=== PATIENT | female | born 1945 | race Caucasian/White ===

== ENCOUNTER 2021-02-02 19:17 | Inpatient (IN) | payer OTHER, MEDICARE, SELFPAY ==
[~2021-02-02] VITALS: Ht 162.6 cm; Wt 70.8 kg
[2021-02-02 19:17] VITALS: BP_SYST 176
[2021-02-02] MEDS ORDERED: HYDR-3927 PO (19:34)
[2021-02-02] MEDS ORDERED: DOCU250C14 PO (19:35)
[2021-02-02] MEDS ORDERED: PERC10 PO (19:36)
[2021-02-02] MEDS ORDERED: OXYB5TAB18 PO (19:37)
[2021-02-02] MEDS ORDERED: CEPH500C2 PO (19:38)
[2021-02-02] MEDS ORDERED: SENN8.6T19 PO (19:38)
[2021-02-02] MEDS ORDERED: CARB-290 PO (19:39)
[2021-02-02] MEDS ORDERED: HYDR2TAB4 PO (19:41)
[2021-02-02 21:17] LABS: BASOPHILS # (AUTO) 0.1 K/uL (0.0-0.2); BASOPHILS % (AUTO) 0.4 % (0.0-2.0); EOSINOPHILS % (AUTO) 0.1 % (0.0-4.0); HEMATOCRIT 32.9 % (36-48); HEMOGLOBIN 11.8 g/dL (12.0-16.0); LYMPHOCYTES # (AUTO) 0.5 K/uL (1.0-5.5); LYMPHOCYTES % (AUTO) 2.9 % (20.5-51.5); MEAN CORPUSCULAR HEMOGLOBIN 31 pg (27-31); MEAN CORPUSCULAR HGB CONC 36 % (32-36); MEAN CORPUSCULAR VOLUME 88 fL (79.0-98.0); MONOCYTES # (AUTO) 0.6 K/uL (0.0-1.0); NEUTROPHILS # (AUTO) 14.7 K/uL (1.8-7.7); NEUTROPHILS % (AUTO) 92.6 % (40.0-70.0); PLATELET COUNT (AUTO) 548 K/uL (130-430); RED BLOOD CELL COUNT(AUTO) 3.75 MIL/uL (4.2-6.2); RED CELL DISTRIBUTION WIDTH 14.8 % (9.0-15.0); WHITE BLOOD COUNT (AUTO) 15.9 K/uL (4.8-10.8)
[2021-02-02 21:26] LABS: ANION GAP 7 (5-15); CALCIUM 8.9 mg/dL (8.4-11.0); CREATININE 0.74 mg/dL (0.55-1.30); GLUCOSE 117 mg/dL (70-99); POTASSIUM 4.6 mmol/L (3.5-5.1); UREA NITROGEN, BLOOD 14 mg/dL (8-21)
[2021-02-02 21:27] LABS: PROTHROMBIN TIME 10.6 SECS (9.5-12.5)
[2021-02-02 21:31] LABS: ALANINE AMINOTRANSFERASE 10 U/L (12-78); ALBUMIN 3.2 g/dL (3.4-4.8); ASPARTATE AMINOTRANSFERASE 24 U/L (10-37); TOTAL BILIRUBIN 0.4 mg/dL (0.0-1.0)
[2021-02-02 21:45] LABS: SODIUM SERUM 114 mmol/L (136-145)
[2021-02-02 21:46] LABS: ACETAMINOPHEN < 1 ug/mL (1-30); ALCOHOL, BLOOD < 3 mg/dL (<10); CHLORIDE 81 mmol/L (98-107)
[2021-02-02 21:54] LABS: C-REACTIVE PROTEIN QUANT 1.6 mg/dL (0-0.5)
[2021-02-02] MEDS ORDERED: NACL 0.9% 1,000 ML IV ONE (22:00)
[2021-02-02] MEDS ORDERED: cefTRIAXone 1 GM IVPB PREMIX 50 ML IV ONE (22:00)
[2021-02-02 22:23] LABS: ACETONE, SERUM NEGATIVE (NEGATIVE)
[2021-02-02] MEDS ORDERED: amLODIPine BESYLATE 10 MG TABLET PO ONE (22:30)
[2021-02-02] MEDS ORDERED: ONDANSETRON HCL 4 MG/2 ML VIAL IVP PRN (22:45)
[2021-02-02] MEDS ORDERED: OXYCODONE/ACETAMINOPHEN *10*mg/325 mg TABLET PO PRN (22:45)
[2021-02-02] MEDS ORDERED: DOCUSATE SODIUM 250 MG CAPSULE PO PRN (22:45)
[2021-02-02] MEDS ORDERED: SENNOSIDES 8.6 MG TABLET PO PRN (22:45)
[2021-02-02] MEDS ORDERED: cloNIDine HCL 0.1 MG TABLET PO PRN (22:45)
[2021-02-02 23:20] LABS: BILIRUBIN,URINE NEGATIVE (NEGATIVE); BLOOD, URINE NEGATIVE (NEGATIVE); CLARITY/URINE CLEAR (CLEAR); COLOR,URINE YELLOW (YELLOW); GLUCOSE,URINE NEGATIVE (NEGATIVE); KETONES,URINE 1+ (NEGATIVE); LEUKOCYTE ESTERASE ,URINE NEGATIVE (NEGATIVE); NITRITE, URINE NEGATIVE (NEGATIVE); PH,URINE 5.5 (5.0-8.0); PROTEIN URINE NEGATIVE (NEGATIVE); UROBILINOGEN,URINE 0.2 (0.2-1.0)
[2021-02-02 23:38] LABS: BARBITURATE, URINE NEGATIVE (NEG <=200); BENZODIAZEPINE, URINE NEGATIVE (NEG <=150); CANNABINOID, URINE NEGATIVE (NEG <=50); COCAINE, URINE NEGATIVE (NEG <=150); METHAMPHETAMINES SCREEN,URINE NEGATIVE (NEG <=500); OPIATE, URINE POSITIVE (NEG <=100); PHENCYCLIDINE SCREEN,URINE NEGATIVE (NEG <=25); UR TRICYCLIC ANTIDEPRESSANTS NEGATIVE (NEG <=300); URINE AMPHETAMINE NEGATIVE (NEG <=500); URINE METHADONE NEGATIVE (NEG <=200); URINE OXYCODONE SCREEN POSITIVE (NEG <=100); URINE PROPOXYPHENE SCREEN NEGATIVE (NEG <=300)
[2021-02-03 01:00] VITALS: BP_SYST 164
[2021-02-03] MEDS: D5NS 1,000 ML IV SCH ×3 (01:57→19:57)
[2021-02-03] MEDS: CARBIDOPA/LEVODOPA 25/100 MG TABLET PO SCH ×4 (01:58→19:56)
[2021-02-03] MEDS ORDERED: AMPICILLIN SODIUM/SULBACTAM NA 1.5 GM VIAL ONE (01:58)
[2021-02-03] MEDS: METOPROLOL TARTRATE 50 MG TABLET PO SCH ×3 (01:58→19:57)
[2021-02-03] MEDS: AMPICILLIN SODIUM/SULBACTAM NA 1.5 GM in NS 50 ML IV SCH ×5 (02:00→23:50)
[2021-02-03] MEDS: ENOXAPARIN SODIUM 40 MG/0.4 ML SYRINGE SUBCUT SCH ×2 (02:02→19:58)
[2021-02-03 04:00] VITALS: BP_SYST 136
[2021-02-03 06:24] LABS: BASOPHILS % (AUTO) 0.1 % (0.0-2.0); EOSINOPHILS % (AUTO) 0.3 % (0.0-4.0); HEMATOCRIT 32.8 % (36-48); HEMOGLOBIN 11.4 g/dL (12.0-16.0); LYMPHOCYTES # (AUTO) 0.7 K/uL (1.0-5.5); LYMPHOCYTES % (AUTO) 4.3 % (20.5-51.5); MEAN CORPUSCULAR HEMOGLOBIN 31 pg (27-31); MEAN CORPUSCULAR HGB CONC 35 % (32-36); MEAN CORPUSCULAR VOLUME 88 fL (79.0-98.0); MONOCYTES % (AUTO) 6.7 % (1.7-9.3); NEUTROPHILS # (AUTO) 13.4 K/uL (1.8-7.7); NEUTROPHILS % (AUTO) 88.6 % (40.0-70.0); PLATELET COUNT (AUTO) 587 K/uL (130-430); RED BLOOD CELL COUNT(AUTO) 3.73 MIL/uL (4.2-6.2); RED CELL DISTRIBUTION WIDTH 14.8 % (9.0-15.0); WHITE BLOOD COUNT (AUTO) 15.1 K/uL (4.8-10.8)
[2021-02-03 06:42] LABS: ALANINE AMINOTRANSFERASE 5 U/L (12-78); ALBUMIN 2.9 g/dL (3.4-4.8); ANION GAP 7 (5-15); ASPARTATE AMINOTRANSFERASE 15 U/L (10-37); CALCIUM 8.6 mg/dL (8.4-11.0); CREATININE 0.75 mg/dL (0.55-1.30); GLUCOSE 106 mg/dL (70-99); TOTAL BILIRUBIN 0.6 mg/dL (0.0-1.0); UREA NITROGEN, BLOOD 10 mg/dL (8-21)
[2021-02-03 07:42] LABS: CHLORIDE 85 mmol/L (98-107)
[2021-02-03 07:44] LABS: SODIUM SERUM 118 mmol/L (136-145)
[2021-02-03] MEDS ORDERED: cephALEXin 500 MG CAPSULE PO SCH (09:00)
[2021-02-03] MEDS: amLODIPine BESYLATE 10 MG TABLET PO SCH (09:01)
[2021-02-03] MEDS: OXYBUTYNIN CHLORIDE 5 MG TABLET PO SCH ×2 (09:01→19:56)
[2021-02-03 15:43] VITALS: BP_SYST 140
[2021-02-03] MEDS: HYDROmorphone 2 MG/ML VIAL IVP PRN (17:16)
[2021-02-03 17:20] VITALS: BP_SYST 153
[2021-02-03 20:00] VITALS: BP_SYST 141
[2021-02-03] MEDS ORDERED: cefTRIAXone 1 GM in D5W 50 ML IV SCH (21:00)
[2021-02-03] MEDS: LORazepam 1 MG TABLET PO SCH (22:17)
[2021-02-04] VITALS: BP_SYST 138
[2021-02-04] MEDS: HYDROmorphone 2 MG/ML VIAL IVP PRN (04:32)
[2021-02-04] MEDS: AMPICILLIN SODIUM/SULBACTAM NA 1.5 GM in NS 50 ML IV SCH ×4 (05:22→17:45)
[2021-02-04 06:32] LABS: BASOPHILS % (AUTO) 0.5 % (0.0-2.0); EOSINOPHILS # (AUTO) 0.1 K/uL (0.0-0.4); EOSINOPHILS % (AUTO) 1.2 % (0.0-4.0); HEMATOCRIT 32.1 % (36-48); HEMOGLOBIN 11.4 g/dL (12.0-16.0); LYMPHOCYTES # (AUTO) 0.8 K/uL (1.0-5.5); LYMPHOCYTES % (AUTO) 9.2 % (20.5-51.5); MEAN CORPUSCULAR HEMOGLOBIN 31 pg (27-31); MEAN CORPUSCULAR HGB CONC 36 % (32-36); MEAN CORPUSCULAR VOLUME 88 fL (79.0-98.0); MONOCYTES # (AUTO) 1.1 K/uL (0.0-1.0); MONOCYTES % (AUTO) 11.7 % (1.7-9.3); NEUTROPHILS # (AUTO) 7.1 K/uL (1.8-7.7); NEUTROPHILS % (AUTO) 77.4 % (40.0-70.0); PLATELET COUNT (AUTO) 583 K/uL (130-430); RED BLOOD CELL COUNT(AUTO) 3.64 MIL/uL (4.2-6.2); RED CELL DISTRIBUTION WIDTH 15.1 % (9.0-15.0); WHITE BLOOD COUNT (AUTO) 9.2 K/uL (4.8-10.8)
[2021-02-04 06:41] LABS: ANION GAP 4 (5-15); CALCIUM 8.8 mg/dL (8.4-11.0); CHLORIDE 89 mmol/L (98-107); CREATININE 0.65 mg/dL (0.55-1.30); GLUCOSE 98 mg/dL (70-99); PHOSPHORUS 2.5 mg/dL (2.7-4.5); POTASSIUM 3.5 mmol/L (3.5-5.1); SODIUM SERUM 122 mmol/L (136-145); UREA NITROGEN, BLOOD 7 mg/dL (8-21)
[2021-02-04 08:00] VITALS: BP_SYST 126
[2021-02-04] MEDS: OXYBUTYNIN CHLORIDE 5 MG TABLET PO SCH ×2 (08:36→20:32)
[2021-02-04] MEDS: METOPROLOL TARTRATE 50 MG TABLET PO SCH ×2 (08:37→20:32)
[2021-02-04] MEDS: amLODIPine BESYLATE 10 MG TABLET PO SCH (08:37)
[2021-02-04] MEDS: CARBIDOPA/LEVODOPA 25/100 MG TABLET PO SCH ×3 (08:37→20:31)
[2021-02-04] MEDS: D5NS 1,000 ML IV SCH (10:03)
[2021-02-04 12:11] VITALS: BP_SYST 116
[2021-02-04] MEDS: ACETAMINOPHEN 325 MG TABLET PO PRN (15:11)
[2021-02-04 16:00] VITALS: BP_SYST 90
[2021-02-04] MEDS: OXYCODONE/ACETAMINOPHEN 5-325 TABLET PO PRN ×2 (17:46→22:16)
[2021-02-04 20:27] VITALS: BP_SYST 108
[2021-02-04] MEDS: LORazepam 1 MG TABLET PO SCH (20:32)
[2021-02-04] MEDS: ENOXAPARIN SODIUM 40 MG/0.4 ML SYRINGE SUBCUT SCH (20:33)
[2021-02-04 22:14] VITALS: BP_SYST 133
[2021-02-05 02:18] VITALS: BP_SYST 125
[2021-02-05] MEDS: OXYCODONE/ACETAMINOPHEN 5-325 TABLET PO PRN ×4 (02:29→21:10)
[2021-02-05] MEDS: D5NS 1,000 ML IV SCH ×2 (05:00→16:55)
[2021-02-05] MEDS: AMPICILLIN SODIUM/SULBACTAM NA 1.5 GM in NS 50 ML IV SCH ×3 (05:07→17:32)
[2021-02-05 06:42] LABS: BASOPHILS # (AUTO) 0.1 K/uL (0.0-0.2); BASOPHILS % (AUTO) 0.7 % (0.0-2.0); EOSINOPHILS # (AUTO) 0.2 K/uL (0.0-0.4); EOSINOPHILS % (AUTO) 1.4 % (0.0-4.0); HEMATOCRIT 31.7 % (36-48); HEMOGLOBIN 11.2 g/dL (12.0-16.0); LYMPHOCYTES # (AUTO) 0.9 K/uL (1.0-5.5); LYMPHOCYTES % (AUTO) 7.9 % (20.5-51.5); MEAN CORPUSCULAR HEMOGLOBIN 31 pg (27-31); MEAN CORPUSCULAR HGB CONC 35 % (32-36); MEAN CORPUSCULAR VOLUME 89 fL (79.0-98.0); MONOCYTES % (AUTO) 9.5 % (1.7-9.3); NEUTROPHILS # (AUTO) 8.8 K/uL (1.8-7.7); NEUTROPHILS % (AUTO) 80.5 % (40.0-70.0); PLATELET COUNT (AUTO) 562 K/uL (130-430); RED BLOOD CELL COUNT(AUTO) 3.56 MIL/uL (4.2-6.2); RED CELL DISTRIBUTION WIDTH 15.1 % (9.0-15.0); WHITE BLOOD COUNT (AUTO) 10.9 K/uL (4.8-10.8)
[2021-02-05 06:57] LABS: ANION GAP 3 (5-15); CALCIUM 8.7 mg/dL (8.4-11.0); CHLORIDE 96 mmol/L (98-107); CREATININE 0.87 mg/dL (0.55-1.30); GLUCOSE 98 mg/dL (70-99); POTASSIUM 3.9 mmol/L (3.5-5.1); SODIUM SERUM 130 mmol/L (136-145); UREA NITROGEN, BLOOD 13 mg/dL (8-21)
[2021-02-05 07:58] VITALS: BP_SYST 130
[2021-02-05] MEDS: METOPROLOL TARTRATE 50 MG TABLET PO SCH ×2 (08:38→21:10)
[2021-02-05] MEDS: amLODIPine BESYLATE 10 MG TABLET PO SCH (08:38)
[2021-02-05] MEDS: OXYBUTYNIN CHLORIDE 5 MG TABLET PO SCH ×2 (08:38→21:09)
[2021-02-05] MEDS: CARBIDOPA/LEVODOPA 25/100 MG TABLET PO SCH ×3 (08:38→21:09)
[2021-02-05] MEDS: ACETAMINOPHEN 325 MG TABLET PO PRN (08:42)
[2021-02-05 12:00] VITALS: BP_SYST 127
[2021-02-05 15:52] VITALS: BP_SYST 118
[2021-02-05] MEDS ORDERED: MELATONIN 5 MG TABLET PO SCH (21:00)
[2021-02-05 21:05] VITALS: BP_SYST 150
[2021-02-05] MEDS: DOCUSATE SODIUM 250 MG CAPSULE PO SCH (21:09)
[2021-02-05] MEDS: LORazepam 1 MG TABLET PO SCH (21:10)
[2021-02-05] MEDS: ENOXAPARIN SODIUM 40 MG/0.4 ML SYRINGE SUBCUT SCH (21:12)
[2021-02-05] MEDS: TEMAZEPAM 7.5 MG CAPSULE PO SCH (21:56)
[2021-02-06 00:19] VITALS: BP_SYST 109
[2021-02-06] MEDS: AMPICILLIN SODIUM/SULBACTAM NA 1.5 GM in NS 50 ML IV SCH ×5 (00:32→23:06)
[2021-02-06] MEDS: D5NS 1,000 ML IV SCH ×2 (00:34→14:20)
[2021-02-06 07:03] LABS: BASOPHILS # (AUTO) 0.1 K/uL (0.0-0.2); BASOPHILS % (AUTO) 0.9 % (0.0-2.0); EOSINOPHILS # (AUTO) 0.2 K/uL (0.0-0.4); HEMATOCRIT 32.9 % (36-48); HEMOGLOBIN 11.4 g/dL (12.0-16.0); LYMPHOCYTES # (AUTO) 0.9 K/uL (1.0-5.5); LYMPHOCYTES % (AUTO) 8.8 % (20.5-51.5); MEAN CORPUSCULAR HEMOGLOBIN 31 pg (27-31); MEAN CORPUSCULAR HGB CONC 35 % (32-36); MEAN CORPUSCULAR VOLUME 89 fL (79.0-98.0); MONOCYTES % (AUTO) 9.2 % (1.7-9.3); NEUTROPHILS # (AUTO) 8.5 K/uL (1.8-7.7); NEUTROPHILS % (AUTO) 79.1 % (40.0-70.0); PLATELET COUNT (AUTO) 568 K/uL (130-430); RED BLOOD CELL COUNT(AUTO) 3.68 MIL/uL (4.2-6.2); RED CELL DISTRIBUTION WIDTH 15.3 % (9.0-15.0); WHITE BLOOD COUNT (AUTO) 10.7 K/uL (4.8-10.8)
[2021-02-06 08:00] VITALS: BP_SYST 151
[2021-02-06 08:09] LABS: ANION GAP 4 (5-15); CALCIUM 8.7 mg/dL (8.4-11.0); CHLORIDE 99 mmol/L (98-107); CREATININE 0.78 mg/dL (0.55-1.30); GLUCOSE 94 mg/dL (70-99); POTASSIUM 3.9 mmol/L (3.5-5.1); SODIUM SERUM 134 mmol/L (136-145); UREA NITROGEN, BLOOD 15 mg/dL (8-21)
[2021-02-06] MEDS: DOCUSATE SODIUM 250 MG CAPSULE PO SCH ×2 (08:23→20:22)
[2021-02-06] MEDS: CARBIDOPA/LEVODOPA 25/100 MG TABLET PO SCH ×3 (08:23→20:22)
[2021-02-06] MEDS: OXYBUTYNIN CHLORIDE 5 MG TABLET PO SCH ×2 (08:23→20:22)
[2021-02-06] MEDS: METOPROLOL TARTRATE 50 MG TABLET PO SCH ×2 (08:23→20:23)
[2021-02-06] MEDS: SENNOSIDES 8.6 MG TABLET PO SCH (08:23)
[2021-02-06] MEDS: amLODIPine BESYLATE 10 MG TABLET PO SCH (08:23)
[2021-02-06 13:13] VITALS: BP_SYST 130
[2021-02-06] MEDS: OXYCODONE/ACETAMINOPHEN 5-325 TABLET PO PRN ×2 (14:19→18:23)
[2021-02-06 17:30] VITALS: BP_SYST 105
[2021-02-06 20:00] VITALS: BP_SYST 142
[2021-02-06] MEDS: TEMAZEPAM 7.5 MG CAPSULE PO SCH (20:22)
[2021-02-06] MEDS: ENOXAPARIN SODIUM 40 MG/0.4 ML SYRINGE SUBCUT SCH (20:25)
[2021-02-06] MEDS: LORazepam 1 MG TABLET PO SCH (20:27)
[2021-02-07 01:47] VITALS: BP_SYST 107
[2021-02-07] MEDS: OXYCODONE/ACETAMINOPHEN 5-325 TABLET PO PRN ×4 (03:20→18:18)
[2021-02-07] MEDS: AMPICILLIN SODIUM/SULBACTAM NA 1.5 GM in NS 50 ML IV SCH ×3 (05:24→17:09)
[2021-02-07 08:00] VITALS: BP_SYST 156
[2021-02-07] MEDS: D5NS 1,000 ML IV SCH (09:12)
[2021-02-07] MEDS: DOCUSATE SODIUM 250 MG CAPSULE PO SCH (09:14)
[2021-02-07] MEDS: amLODIPine BESYLATE 10 MG TABLET PO SCH (09:14)
[2021-02-07] MEDS: CARBIDOPA/LEVODOPA 25/100 MG TABLET PO SCH ×2 (09:14→17:10)
[2021-02-07] MEDS: METOPROLOL TARTRATE 50 MG TABLET PO SCH (09:15)
[2021-02-07] MEDS: OXYBUTYNIN CHLORIDE 5 MG TABLET PO SCH (09:15)
[2021-02-07] MEDS: SENNOSIDES 8.6 MG TABLET PO SCH (09:16)
[2021-02-07 12:31] VITALS: BP_SYST 125
[2021-02-07 14:33] VITALS: BP_SYST 125
[2021-02-07] MEDS ORDERED: [UNRECOGNIZED DRUG - CODE] IV (15:40)
[2021-02-07] MEDS ORDERED: METO-442 PO (15:41)
[2021-02-07] MEDS ORDERED: LORA-259 PO (15:42)
[2021-02-07] MEDS ORDERED: TEMA15CA5 PO (15:42)
[2021-02-07] MEDS ORDERED: NOR10 PO (15:44)
[2021-02-07 16:00] VITALS: BP_SYST 138
== END 2021-02-07 18:30 | DRG 640 ==
LOC: SED 19:17 → STU 22:08
PROVIDERS: ADMIT Family Medicine; ATTEND Family Medicine
DX: E87.1 Hypo-osmolality and hyponatremia (principal); G93.41 Metabolic encephalopathy; I10 Essential (primary) hypertension; G20 Parkinson's disease; D72.829 Elevated white blood cell count, unspecified; Z20.822 Contact with and (suspected) exposure to COVID-19; Z88.8 Allergy status to other drugs, medicaments and biological substances; R40.2240 Coma scale, best verbal response, confused conversation, unspecified time
CPT/HCPCS: 36415; 70450-TC; 71045; 76376; 80048; 80053; 80307; 81003; 82009; 82140; 82550; 83605; 83735; 83880; 84100; 84484; 85025; 85610-TC; 85730-TC; 86140; 87040-TC; 93005; 97110-GP; 97116-GP; 97530-GP; 99285; G0378; G0480; G0481; G0482; J0295; J1170; J1650; J2405